=== PATIENT | female | born 1990 | race Caucasian/White ===

== ENCOUNTER 2023-04-23 20:52 | Emergency (ER) | payer BC ==
[~2023-04-23] VITALS: Ht 160 cm; Wt 54.4 kg
[2023-04-23 21:10] VITALS: BP 131/74; TEMP 98
[2023-04-23 21:24] VITALS: O2SAT 99
== END 2023-04-23 22:20 | disposition home or self-care (01) ==
LOC: ER 20:54
DX: S61.211A Laceration without foreign body of left index finger without damage to nail, initial encounter (principal); Z60.2 Problems related to living alone; W26.0XXA Contact with knife, initial encounter; Y93.89 Activity, other specified; Y92.89 Other specified places as the place of occurrence of the external cause; Y99.8 Other external cause status